=== PATIENT | female | born 1995 | race Two or more races ===

== ENCOUNTER 2018-05-31 13:12 | Emergency (ER) | payer SELFPAY ==
[~2018-05-31] VITALS: Ht 149.9 cm; Wt 64.9 kg
[~2018-05-31 13:12] MED LIST: KEFLEX500 MG ORAL
[2018-05-31] MEDS ORDERED: NKM (13:34)
[2018-05-31 13:44] VITALS: BP 142/80
--- NOTE | 2018-05-31 13:47 | Emergency Room Report ---
History of Present Illness General Chief Complaint: Dizziness Source: Patient Present Illness HPI 23-year-old female patient presents to ER complaining of "I feel dizzy". Reports symptoms began last night but has since resolved, states she feels "a little shaky still". Reports that she threw up once this morning and since that time symptoms have begun to resolve. Denies headache, vision changes, room spinning, tinnitus. Denies dysuria, hematuria. Denies chest pain, dysuria , hematuria, diarrhea, abdominal pain. Denies fainting. Denies syncope. Reports feeling hungry. Denies dizziness with position change. Reports hx of asthma as a child, denies asthma currently. Allergies: Coded Allergies: NO KNOWN ALLERGIES (Unverified Allergy, Unknown, 08/14/15) Patient History Past Medical History: see triage record Last Menstrual Period: 04/20/18 Reviewed Nursing Documentation: PMH: Agreed; PSxH: Agreed Nursing Documentation-PMH Past Medical History: No Stated History Review of Systems All Other Systems: negative except mentioned in HPI Physical Exam Vital Signs Date Time Temp Pulse Resp B/P (MAP) Pulse Ox O2 Delivery O2 Flow Rate FiO2 05/31/18 13:32 99.1 99 18 142/80 97 Room Air 99.1 Sp02 EP Interpretation: reviewed, normal General Appearance: well appearing, no apparent distress, alert, GCS 15, non- toxic Head: normocephalic, atraumatic Eyes: bilateral eye normal inspection, bilateral eye PERRL ENT: hearing grossly normal, normal pharynx, no angioedema, normal voice, TMs + canals normal, uvula midline, moist mucus membranes Neck: full range of motion Respiratory: lungs clear, normal breath sounds, no rhonchi, no respiratory distress, no accessory muscle use, no wheezing, speaking full sentences Cardiovascular #1: regular rate, rhythm, no edema Gastrointestinal: non tender, soft, no mass, non-distended, no guarding, no rebound, other - negative Rovsing, negative Trinh Genitourinary: no CVA tenderness Musculoskeletal: back normal, digits/nails normal, gait/station normal, normal range of motion, non-tender Neurologic: alert, oriented x3, responsive, implement mechanic III-XII nml as tested, motor strength/tone normal, sensory intact Psychiatric: mood/affect normal Skin: no rash Medical Decision Making PA Attestation Dr. Voss is my supervising Physician whom patient management has been discussed with. Diagnostic Impression: Primary Impression: Vomiting Additional Impression: Spell of dizziness ER Course Pt. presents to the ED c/o feeling dizzy yesterday and one episode of vomiting earlier today. Ddx considered but are not limited to vertigo, BPPV, RI, orthostatic hypotension , gastritis. No abdominal TTP, no dysuria, no hematuria, does not require imaging at this time. Vital signs: are WNL, pt. is afebrile. Blood pressure mildly elevated at this time, will continue to monitor. Denies chest pain, shortness of breath, vision changes, does not require acute intervention at ER at this time. Follow with primary care provider discuss further treatment and referral. Advised on low-sodium diet, advised on diet and exercise. Ordered basic labs and Zofran. ER COURSE: cranial nerves intact as tested, no focal neural deficits, no complaints of vision or hearing changes, no vertigo, no nystagmus, does not require CT head at this time. No chest pain, lungs clear to auscultation, no history of heart attack or RI, low suspicion for cardiac cause, does not require cardiac workup at this time. ordered basic labs, CBC and CMP unremarkable. Patient resting comfortably in bed, nontoxic appearing, states that she is hungry and could eat food. Asked in stress could be cause of symptoms, informed patient stress could be related to symptoms. Informed patient to return to ER if symptoms return. Dizziness symptoms likely related to vomiting. Advised patient on vomiting diet. Follow-up with primary care provider to discuss referral to specialists for dizziness symptoms. ER precautions given. DISCHARGE: At this time pt is stable for d/c to home. Patient is resting comfortably, in no acute distress, nontoxic appearing, talking without difficulty. Patient to take medications as instructed Will provide with patient care instructions and any necessary prescriptions. Care plan and follow-up instructions provided. Patient instructed to follow-up with primary care provider in 3 - 5 days. Patient questions asked and answered. Patient reports understanding and agreement to treatment plan. ER precautions given. Patient instructed to return to ER immediately for any new or worsening of symptoms including but not limited to increasing SOB, persistent fever, chest pain, intractable vomiting. - Please note that this Emergency Department Report was dictated using [employer]yle software, occasionally this can lead to erroneous entry secondary to interpretation by the dictation equipment. Labs Test 05/31/18 13:50 White Blood Count 9.4 K/UL (4.8-10.8) Red Blood Count 5.10 M/UL (4.20-5.40) Hemoglobin 15.2 G/DL (12.0-16.0) Hematocrit 45.0 % (37.0-47.0) Mean Corpuscular Volume 88 FL (80-99) Mean Corpuscular Hemoglobin 29.8 PG (27.0-31.0) Mean Corpuscular Hemoglobin Concent 33.8 G/DL (32.0-36.0) Red Cell Distribution Width 10.7 % (11.6-14.8) Platelet Count 323 K/UL (150-450) Mean Platelet Volume 6.6 FL (6.5-10.1) Neutrophils (%) (Auto) 75.4 % (45.0-75.0) Lymphocytes (%) (Auto) 17.9 % (20.0-45.0) Monocytes (%) (Auto) 6.0 % (1.0-10.0) Eosinophils (%) (Auto) 0.3 % (0.0-3.0) Basophils (%) (Auto) 0.4 % (0.0-2.0) Sodium Level 141 MMOL/L (136-145) Potassium Level 3.9 MMOL/L (3.5-5.1) Chloride Level 105 MMOL/L (98-107) Carbon Dioxide Level 24 MMOL/L (21-32) Anion Gap 12 mmol/L (5-15) Blood Urea Nitrogen 10 mg/dL (7-18) Creatinine 0.9 MG/DL (0.55-1.30) Estimat Glomerular Filtration Rate > 60 mL/min (>60) Glucose Level 102 MG/DL (74-106) Calcium Level 9.6 MG/DL (8.5-10.1) Total Bilirubin 1.1 MG/DL (0.2-1.0) Direct Bilirubin 0.2 MG/DL (0.0-0.3) Aspartate Amino Transf (AST/SGOT) 24 U/L (15-37) Alanine Aminotransferase (ALT/SGPT) 45 U/L (12-78) Alkaline Phosphatase 85 U/L (46-116) Total Protein 8.3 G/DL (6.4-8.2) Albumin 4.3 G/DL (3.4-5.0) Globulin 4.0 g/dL Albumin/Globulin Ratio 1.1 (1.0-2.7) Last Vital Signs Date Time Temp Pulse Resp B/P (MAP) Pulse Ox O2 Delivery O2 Flow Rate FiO2 05/31/18 13:32 99.1 99 18 142/80 97 Room Air 99.1 Status: improved Disposition: HOME, SELF-CARE Condition: Stable Patient Instructions: Dizziness, Nausea and Vomiting, Adult, [id number] Additional Instructions: Followup with primary care provider in 3 -5 days. Discuss referral for dizziness symptoms. Avoid spicy foods, avoid dairy foods. BRAT diet: bananas, rice, apple sauce, toast. Drink plenty of fluids. Take medications as directed. Patient questions asked and answered. ER precautions given, patient instructed to return to ER immediately for any new or worsening of symptoms. Denton Forrest May 31, 2018 13:47
[2018-05-31 14:18] LABS: BASOPHILS % (AUTO) 0.4 % (0.0-2.0); EOSINOPHILS % (AUTO) 0.3 % (0.0-3.0); HEMOGLOBIN 15.2 G/DL (12.0-16.0); LYMPHOCYTES % (AUTO) 17.9 % (20.0-45.0); MEAN CORPUSCULAR VOLUME 88 FL (80-99); NEUTROPHILS % (AUTO) 75.4 % (45.0-75.0); PLATELET COUNT 323 K/UL (150-450); RED CELL DISTRIBUTION WIDTH 10.7 % (11.6-14.8); WHITE BLOOD COUNT 9.4 K/UL (4.8-10.8)
[2018-05-31 14:26] LABS: ANION GAP 12 mmol/L (5-15); BLOOD UREA NITROGEN 10 mg/dL (7-18); CALCIUM 9.6 MG/DL (8.5-10.1); CARBON DIOXIDE 24 MMOL/L (21-32); CHLORIDE 105 MMOL/L (98-107); CREATININE 0.9 MG/DL (0.55-1.30); POTASSIUM 3.9 MMOL/L (3.5-5.1); SODIUM 141 MMOL/L (136-145)
[2018-05-31 14:39] LABS: ALANINE AMINOTRANSFERASE 45 U/L (12-78); ALBUMIN 4.3 G/DL (3.4-5.0); ALBUMIN/GLOBULIN RATIO 1.1 (1.0-2.7); ALKALINE PHOSPHATASE 85 U/L (46-116); ASPARTATE AMINO TRANSFERASE 24 U/L (15-37); BILIRUBIN,TOTAL 1.1 MG/DL (0.2-1.0)
[2018-05-31 14:41] LABS: BILIRUBIN,DIRECT 0.2 MG/DL (0.0-0.3)
[2018-05-31 14:49] VITALS: BP 142/80
== END 2018-05-31 14:49 | disposition home or self-care (01) ==
LOC: EMR 13:58
DX: R11.10 Vomiting, unspecified (principal); R42 Dizziness and giddiness
CPT/HCPCS: 36415; 80053; 82248; 85025; 99283